=== PATIENT | male | born 1980 | race Caucasian/White ===

== ENCOUNTER 2021-04-25 20:24 | Emergency (ER) | payer SELFPAY ==
[2021-04-25] MEDS ORDERED: Diphtheria,Pertussis(Acell),Tetanus Vaccine 0.5 ML Syringe IM ONE (21:39)
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
--- NOTE | 2021-04-25 23:19 | CRLCR ---
For Patients: As a result of the Century Cures Act, medical imaging exams and procedure reports are released immediately into your electronic medical record. You may view this report before your referring provider. If you have questions, please contact your health care provider. INDICATION: Wrist injury, bilateral wrist pain TECHNIQUE: Wrist radiograph 6 views bilateral COMPARISON: None FINDINGS: Bone: There is a nondisplaced intra-articular fracture the right radial styloid present. A nondisplaced oblique fracture is present in the left distal ulnar metaphyseal region. A small corticated ossicle is seen along the dorsal proximal row the carpus on the lateral exam. Joint: The radiocarpal, carpal, and carpometacarpal joints are unremarkable in appearance. Soft tissue: Unremarkable. No radiopaque foreign bodies are seen. IMPRESSIONS: 1. There is a nondisplaced intra-articular fracture the right radial styloid present. 2. A nondisplaced oblique fracture is present in the left distal ulnar metaphyseal region. Dictated by Baldomero Tovar MD @ 04/25/2021 11:17:51 PM Dictated by: Baldomero Tovar MD @ 04/25/2021 23:17:59 (Electronically Signed)
== END 2021-04-25 23:12 | disposition home or self-care (01) ==
LOC: JP.ED 20:24
DX: S52.692A Other fracture of lower end of left ulna, initial encounter for closed fracture (principal); S00.81XA Abrasion of other part of head, initial encounter; Z72.0 Tobacco use; Z23 Encounter for immunization; V86.56XA Driver of dirt bike or motor/cross bike injured in nontraffic accident, initial encounter
CPT/HCPCS: 29125; 73110-50; 90471; 90715; 99284-25